=== PATIENT | male | born 1955 | race Caucasian/White ===

== ENCOUNTER → 2020-01-15 | Day surgery (SDC) | payer MEDICARE ==
[~2020-01-15] MED LIST: ALKA-SELTZER H1 EACH PO; FENTANYL CITRATE/PF 100MCG/2 ML INJ ONE; LAMICTAL100 MG PO; LIDOCAINE HCL 2% LOCAL INJ 5 ML SDV VIAL INJ ONE; MIDAZOLAM HCL 2 MG/2 ML VIAL ONE; MULTIVITAMINS1 EAC7 PO; ONDANSETRON2 MG/1 ML PO; PROPOFOL IV EMULSION 10 MG/ML 20 ML VIAL ONE; RISPERIDONE1 MG PO; THIAMINE H100 MG/1 M PO; TYLENOL # 31 EA PO; ZONISAMIDE100 MG PO
[2020-01-15 11:53] LABS: BASOPHILS # (AUTO) 0.1 (0.0-0.1); BASOPHILS % 0.7 % (0.0-1.0); EOSINOPHILS # (AUTO) 0.4 (0.0-0.4); EOSINOPHILS % 4.7 % (0.0-6.0); HEMATOCRIT 35.4 % (38.2-49.6); HEMOGLOBIN 11.9 g/dL (14.0-18.0); LYMPHOCYTES % 36.2 % (18.0-39.1); MEAN CORPUSCULAR HEMOGLOBIN 31.5 pg (28-32); MEAN CORPUSCULAR HGB CONC 33.6 g/dL (31-35); MEAN CORPUSCULAR VOLUME 93.7 fL (81-99); MONOCYTES # (AUTO) 1.1 (0.2-0.8); MONOCYTES % 13.4 % (4.4-11.3); NEUTROPHILS # (AUTO) 3.7 (2.1-6.9); NEUTROPHILS % 44.6 % (38.7-80.0); PLATELET COUNT 287 x10e3/uL (140-360); RED BLOOD COUNT 3.78 x10e6/uL (4.3-5.7); RED CELL DISTRIBUTION WIDTH 13.7 % (11.7-14.4)
[2020-01-15 12:05] VITALS: BP 148/91
[2020-01-15 12:11] LABS: INR 1.04; PROTHROMBIN TIME 14.1 seconds (11.9-14.5)
--- NOTE | 2020-01-15 17:02 | Operative Report ---
DATE OF PROCEDURE: 01/15/2020 SURGEON: He Nielsen MD PROCEDURES PERFORMED: Esophagogastroduodenoscopy and colonoscopy. PREOPERATIVE DIAGNOSIS: Iron deficiency anemia. POSTOPERATIVE DIAGNOSES: Hiatal hernia with reflux esophagitis, portal gastropathy with some evidence of some bleeding in the stomach but no active blood right now and several duodenal bulb ulcers, not bleeding and two benign colon polyps and diverticulosis. POSTOPERATIVE MEDICATIONS: Consisted of general anesthesia. DESCRIPTION OF PROCEDURE: ESOPHAGOGASTRODUODENOSCOPY: Using an [employer] video gastroscope was inserted into the patient's oropharynx, advanced to hypopharynx, and down to the esophagus. The mucosa apparently in the esophagus was normal until we got down to the GE junction. This was at 40 cm. We had a hiatal hernia from 40-41 cm with evidence of a reflux esophagitis right above the GE junction. A biopsy was obtained. The stomach was entered and insufflated with air. The mucosal pattern of the cardia, fundus, body, and antrum was viewed. There was evidence of some older blood staining the lining of the stomach. No evidence of any active bleeding. No evidence of any ulceration. This may represent a portal gastropathy. A biopsy was obtained in the antrum. The pylorus was visualized and entered. The duodenal bulb contained several small duodenal bulb ulcers, but no evidence of any bleeding. The postbulbar duodenum was within normal limits. The endoscope was withdrawn back up into the stomach. Same findings were seen. The scope was retroflexed at the EG junction. Cardia and fundus were normal in addition in this particular view. The endoscope was then placed back into the body of the stomach and then withdrawn back up into the esophagus, hypopharynx, oropharynx, down to the patient's mouth and the procedure was ended. In conclusion, we had findings of a hiatal hernia with reflux esophagitis, duodenal bulb ulcers, and possible portal gastropathy with evidence of some old bleeding in the stomach. No active bleeding at this time. COLONOSCOPY: After a normal digital rectal examination, the [employer] video colonoscope was inserted into the patient's rectum and advanced without difficulty to the level of the cecum. The colon was studied from that level back down to the rectum and in the descending colon and sigmoid colon, we picked up scattered diverticula with no evidence of a diverticulitis. Down in the sigmoid colon, two small 4 mm size benign polyps were found and were removed with hot biopsy forceps. The colonoscope was withdrawn back to the rectum and the procedure was then ended. At the conclusion, we had findings of diverticulosis and two small benign polyps. No evidence of active bleeding going on at this time. He Nielsen MD SAF/MODL /[id number]
== END | disposition home or self-care (01) ==
LOC: OR 08:21
PROVIDERS: ATTEND Internal Medicine Gastroenterology
DX: D50.9 Iron deficiency anemia, unspecified (principal); K63.5 Polyp of colon; K44.9 Diaphragmatic hernia without obstruction or gangrene; K21.00 Gastro-esophageal reflux disease with esophagitis, without bleeding; K76.6 Portal hypertension; K31.89 Other diseases of stomach and duodenum; K26.9 Duodenal ulcer, unspecified as acute or chronic, without hemorrhage or perforation; K57.30 Diverticulosis of large intestine without perforation or abscess without bleeding; F17.210 Nicotine dependence, cigarettes, uncomplicated; Z01.810 Encounter for preprocedural cardiovascular examination; Z01.812 Encounter for preprocedural laboratory examination; Z20.828 Contact with and (suspected) exposure to other viral communicable diseases
CPT/HCPCS: 36415; 43239; 45384; 85025; 85610; 85730; 88305; 88312; 93005; J2001; J2250; J2704; J3010; U0002